=== PATIENT | male | born 1960 | race Two or more races ===

== ENCOUNTER 2016-08-31 07:39 | Inpatient (IN) | payer OTHER ==
[~2016-08-31] VITALS: Ht 170.2 cm; Wt 98.8 kg
[2016-08-31] VITALS (11 sets, daily range): BP systolic 77–136; BP diastolic 57–104
[2016-08-31 08:36] LABS: BASE EXCESS -10.1 mEq/L (-3 to +3); CARBOXY HGB 2.3 % (0-5); METHEMOGLOBIN 0.8 % (0-1.5); PCO2 66 mm Hg (35-45); PO2 270 mm Hg (80-100)
[2016-08-31 08:37] LABS: COMMENTS - BLOOD GASES C+A-N/A; DEVICE 840 VENTILATOR; FI02 100 %; MECHANICAL RATE 16 resp/min; MODE AC; PEEP 5 CM/H20; SITE LR; TIDAL VOLUME 500 ML; TOTAL RESP RATE 24 resp/min
[2016-08-31 08:38] LABS: pH 7.09 (7.35-7.45)
[2016-08-31 08:47] LABS: ANION GAP 15 MEQ/L (2-14); CHLORIDE 103 MEQ/L (99-109); POTASSIUM 5.1 MEQ/L (3.7-5.4); SAMPLE HEMOLYSIS CHECK 0; SAMPLE ICTERIC CHECK 0; SAMPLE LIPEMIA CHECK 0; SODIUM 137 MEQ/L (136-147); TOTAL BILIRUBIN 1.2 MG/DL (0.0-1.0)
[2016-08-31 08:49] LABS: BASOPHIL COUNT 0.1 K/uL (0-0.1); EOSINOPHIL (%) 1.3 % (0-5); EOSINOPHIL COUNT 0.2 K/uL (0-0.3); HEMATOCRIT 38.3 % (38.0-50.0); IMMATURE GRANULOCYTE (%) 1.1 % (0.0-0.7); IMMATURE GRANULOCYTE COUNT 0.2 K/uL; INSTRUMENT ABS NEUTROPHIL CT 10.7 K/uL; LYMPHOCYTE COUNT 3.9 K/uL (1.0-2.8); MCHC 30.3 G/DL (30.0-36.0); MCV 92.5 FL (86-99); MEAN PLAT.VOLUME 10.1 uM^3 (9.0-12.4); MONOCYTE (%) 4.8 % (3-12); MONOCYTE COUNT 0.8 K/uL (0-0.8); NEUTROPHIL (%) 67.6 % (45-76); NEUTROPHIL COUNT 10.7 K/uL (1.8-6.4); PLATELET COUNT 344 K/uL (156-360); RBC DIS.WIDTH-CV 15.4 % (11.8-14.6); RBC DIS.WIDTH-SD 51.6 % (39-53); RED BLOOD COUNT 4.14 M/uL (4.00-5.50); WHITE BLOOD COUNT 15.9 K/uL (4.1-10.2)
[2016-08-31 08:52] LABS: INTER. NORMALIZED RATIO 1.1; PROTHROMBIN TIME 11.6 (9.2-11.2)
[2016-08-31 08:53] LABS: ALKALINE PHOSPHATASE 76 IU/L (3-129); GFR ESTIMATE (CALCULATED) > 59 mL/min/; GLUCOSE 378 mg/dL (70-99); UREA NITROGEN (BUN) 18 mg/dL (9-23)
[2016-08-31 09:03] LABS: TROP-I INTERPRETATION NEGATIVE; TROPONIN-I 0.03 ng/mL (0.0-0.30)
[2016-08-31 09:39] LABS: BASE EXCESS -3.5 mEq/L (-3 to +3); BICARBONATE 22.7 mEq/L (22-26); CARBOXY HGB 2.4 % (0-5)
[2016-08-31 09:41] LABS: COMMENTS - BLOOD GASES C+A-N/A; DEVICE 840 VENTILATOR; FI02 70 %; INSPIRATION TIME 0.8 seconds; MECHANICAL RATE 24 resp/min; MODE AC/VC+; PCO2 45 mm Hg (35-45); PEEP 5 CM/H20; PO2 101 mm Hg (80-100); SITE LR; TIDAL VOLUME 550 ML; TOTAL RESP RATE 24 resp/min; pH 7.31 (7.35-7.45)
[2016-08-31 12:31] LABS: BASE EXCESS 2.5 mEq/L (-3 to +3); BICARBONATE 26.3 mEq/L (22-26); CARBOXY HGB 2.5 % (0-5); METHEMOGLOBIN 1.4 % (0-1.5)
[2016-08-31 12:32] LABS: COMMENTS - BLOOD GASES +C; PCO2 37 mm Hg (35-45); PO2 60 mm Hg (80-100); SITE LR; pH 7.46 (7.35-7.45)
[2016-08-31 12:33] LABS: METH RESISTANT S AUREUS PCR NEGATIVE (NEGATIVE)
[2016-08-31 12:33] LABS: DEVICE PB840; FI02 40 %; INSPIRATION TIME 0.7 seconds; MECHANICAL RATE 24 resp/min; MODE ACVC+; PEEP 5 CM/H20; TIDAL VOLUME 490 ML; TOTAL RESP RATE 24 resp/min
[2016-08-31 12:38] LABS: PROBE CHECK PASS; SPECIMEN PROCESSING CONTROL PASS
[2016-08-31 12:44] LABS: HDL CHOLESTEROL 42 MG/DL (Desirable>=40); LDL CHOLESTEROL 116 mg/dL (Desirable<100); MAGNESIUM 2.6 mg/dl (1.3-2.7); NON-HDL CHOLESTEROL 151 mg/dL (Desirable<160); TOTAL CHOLESTEROL 193 mg/dL (Desirable<200); TRIGLYCERIDES 173 MG/DL (Normal: <150)
[2016-08-31 13:40] LABS: POINT-OF-CARE METER ID UU14174217; POINT-OF-CARE USER ID NUTJLF39
[2016-08-31] MEDS ORDERED: LISINOPRIL10 MG PO (16:42)
[2016-08-31] MEDS ORDERED: METOPROLOL SUCC50 MG PO (16:43)
[2016-08-31] MEDS ORDERED: ASPIR 8181 M1 PO (16:43)
[2016-08-31] MEDS ORDERED: PLAVIX75 MG PO (16:43)
[2016-08-31] MEDS ORDERED: LASIX20 MG PO (16:43)
[2016-08-31] MEDS ORDERED: COREG12.5 M1 PO (16:44)
[2016-08-31 18:06] LABS: POINT-OF-CARE METER ID UU14174217; POINT-OF-CARE USER ID NUTJLF39
[2016-08-31 18:17] LABS: CREATINE KINASE 303 IU/L (1-294); TOTAL CK 303 IU/L (1-294)
[2016-08-31 18:37] LABS: CK-MB 16.5 ng/mL (0.0-4.9)
[2016-08-31 18:45] LABS: TROP-I INTERPRETATION POSITIVE; TROPONIN-I 2.63 ng/mL (0.0-0.30)
[2016-08-31 21:42] LABS: POINT-OF-CARE METER ID UU14162636
[2016-08-31 22:18] LABS: ADD MIUA? YES; BILIRUBIN NEGATIVE; BLOOD LARGE; COLOR YELLOW ((YELLOW)); GLUCOSE (STRIP) NEGATIVE; KETONES NEGATIVE; LEUKOCYTES TRACE; NITRITE NEGATIVE; PROTEIN (STRIP) 30; SPECIFIC GRAVITY 1.016 (1.000-1.030); UROBILINOGEN 0.2 MG/DL (0.2-1.0)
[2016-08-31 22:56] LABS: EPITHELIAL CELLS RARE /HPF; RED BLOOD CELLS 40-50 /HPF (0-5)
[2016-08-31 22:57] LABS: BACTERIA 2+ /HPF; CASTS PRESENT /LPF; CRYSTALS NONE SEEN; HYALINE CASTS RARE /LPF; MUCUS 1+ /LPF; UCUL ADDED? YES
[2016-09-01] VITALS (24 sets, daily range): BP systolic 91–125; BP diastolic 54–87
[2016-09-01 01:45] LABS: CREATINE KINASE 418 IU/L (1-294); TOTAL CK 418 IU/L (1-294)
[2016-09-01 01:48] LABS: TROPONIN-I 2.36 ng/mL (0.0-0.30)
[2016-09-01 01:49] LABS: TROP-I INTERPRETATION POSITIVE
[2016-09-01 01:50] LABS: CK-MB 7.2 ng/mL (0.0-4.9)
[2016-09-01 02:34] LABS: POINT-OF-CARE METER ID UU13113731
[2016-09-01 06:21] LABS: POINT-OF-CARE METER ID UU13113731
[2016-09-01 07:59] LABS: ANION GAP 11 MEQ/L (2-14); CHLORIDE 101 MEQ/L (99-109); GFR ESTIMATE (CALCULATED) > 59 mL/min/; SAMPLE HEMOLYSIS CHECK 1; SAMPLE ICTERIC CHECK 0; SAMPLE LIPEMIA CHECK 0; SODIUM 139 MEQ/L (136-147); UREA NITROGEN (BUN) 22 mg/dL (9-23)
[2016-09-01 08:01] LABS: CREATINE KINASE 330 IU/L (1-294); TOTAL CK 330 IU/L (1-294)
[2016-09-01 08:02] LABS: EOSINOPHIL (%) 0.1 % (0-5); GLUCOSE 130 mg/dL (70-99); HEMATOCRIT 31.3 % (38.0-50.0); IMMATURE GRANULOCYTE (%) 0.5 % (0.0-0.7); IMMATURE GRANULOCYTE COUNT 0.1 K/uL; INSTRUMENT ABS NEUTROPHIL CT 7.9 K/uL; LYMPHOCYTE COUNT 1.7 K/uL (1.0-2.8); MAGNESIUM 2.1 mg/dl (1.3-2.7); MCH 27.8 PG (29.0-34.0); MCHC 31.3 G/DL (30.0-36.0); MCV 88.7 FL (86-99); MONOCYTE (%) 7.7 % (3-12); MONOCYTE COUNT 0.8 K/uL (0-0.8); NEUTROPHIL (%) 75.5 % (45-76); NEUTROPHIL COUNT 7.9 K/uL (1.8-6.4); POTASSIUM 4.3 MEQ/L (3.7-5.4); RBC DIS.WIDTH-CV 15.9 % (11.8-14.6); RBC DIS.WIDTH-SD 50.8 % (39-53); RED BLOOD COUNT 3.53 M/uL (4.00-5.50)
[2016-09-01 08:03] LABS: WHITE BLOOD COUNT 10.5 K/uL (4.1-10.2)
[2016-09-01 08:17] LABS: TROP-I INTERPRETATION POSITIVE; TROPONIN-I 1.63 ng/mL (0.0-0.30)
[2016-09-01 08:20] LABS: CK-MB 4.8 ng/mL (0.0-4.9)
[2016-09-01 08:39] LABS: ABS NEUTROPHIL COUNT 8.9; ATYPICAL LYMPHOCYTE 1.8 %; BAND NEUTROPHILS 2.6 % (0-8.0); EOSINOPHIL ABS CT 0; MEAN PLAT.VOLUME 9.2 uM^3 (9.0-12.4); PLAT.SUFFICIENCY ADEQUATE; PLATELET COUNT 238 K/uL (156-360); SEG.NEUTROPHILS 82.3 % (46.0-76.0); SMUDGE CELLS 7.1
[2016-09-01 10:46] LABS: BASE EXCESS 4.5 mEq/L (-3 to +3); BICARBONATE 28.3 mEq/L (22-26); COMMENTS - BLOOD GASES +C; CONTINUOUS POS AIRWAY PRESSURE 5 cm H2O; DEVICE PB840; FI02 35 %; METHEMOGLOBIN 1.7 % (0-1.5); MODE TUBE COMP; PCO2 38 mm Hg (35-45); PO2 80 mm Hg (80-100); SITE RB; TOTAL RESP RATE 32 resp/min; pH 7.48 (7.35-7.45)
[2016-09-01 13:51] LABS: POINT-OF-CARE METER ID UU13113731
[2016-09-01] MEDS ORDERED: COREG6.25 M1 PO (14:49)
[2016-09-01] MEDS ORDERED: CORDARONE200 MG PO (14:50)
[2016-09-01] MEDS ORDERED: ATORVASTATIN CA80 MG PO (14:50)
[2016-09-01 15:05] LABS: TROP-I INTERPRETATION POSITIVE; TROPONIN-I 1.03 ng/mL (0.0-0.30)
[2016-09-01 15:16] LABS: CREATINE KINASE 352 IU/L (1-294); TOTAL CK 352 IU/L (1-294)
[2016-09-01 17:42] LABS: POINT-OF-CARE METER ID UU13113731
[2016-09-01 22:51] LABS: POINT-OF-CARE METER ID UU13113731
[2016-09-02] VITALS (13 sets, daily range): BP systolic 79–110; BP diastolic 43–74
[2016-09-02 05:37] LABS: EOSINOPHIL (%) 1.1 % (0-5); EOSINOPHIL COUNT 0.1 K/uL (0-0.3); HEMATOCRIT 30.3 % (38.0-50.0); IMMATURE GRANULOCYTE (%) 0.4 % (0.0-0.7); INSTRUMENT ABS NEUTROPHIL CT 5.6 K/uL; MCH 28.4 PG (29.0-34.0); MCV 88.6 FL (86-99); MEAN PLAT.VOLUME 9.5 uM^3 (9.0-12.4); MONOCYTE (%) 8.2 % (3-12); MONOCYTE COUNT 0.7 K/uL (0-0.8); NEUTROPHIL (%) 66.3 % (45-76); NEUTROPHIL COUNT 5.6 K/uL (1.8-6.4); PLATELET COUNT 230 K/uL (156-360); RBC DIS.WIDTH-CV 15.9 % (11.8-14.6); RBC DIS.WIDTH-SD 51.2 % (39-53); RED BLOOD COUNT 3.42 M/uL (4.00-5.50); WHITE BLOOD COUNT 8.4 K/uL (4.1-10.2)
[2016-09-02 06:05] LABS: ANION GAP 10 MEQ/L (2-14); CHLORIDE 99 MEQ/L (99-109); GFR ESTIMATE (CALCULATED) > 59 mL/min/; GLUCOSE 106 mg/dL (70-99); MAGNESIUM 2.3 mg/dl (1.3-2.7); POTASSIUM 4.1 MEQ/L (3.7-5.4); SAMPLE HEMOLYSIS CHECK 0; SAMPLE ICTERIC CHECK 0; SAMPLE LIPEMIA CHECK 0; SODIUM 139 MEQ/L (136-147); UREA NITROGEN (BUN) 24 mg/dL (9-23)
[2016-09-02 13:08] LABS: POINT-OF-CARE METER ID UU13113731
[2016-09-02 17:14] LABS: POINT-OF-CARE METER ID UU13113731
[2016-09-02 22:27] LABS: POINT-OF-CARE METER ID UU13113731
[2016-09-03] VITALS (8 sets, daily range): BP systolic 86–107; BP diastolic 51–66
[2016-09-03 06:07] LABS: EOSINOPHIL (%) 1.2 % (0-5); EOSINOPHIL COUNT 0.1 K/uL (0-0.3); HEMATOCRIT 33.1 % (38.0-50.0); IMMATURE GRANULOCYTE (%) 0.5 % (0.0-0.7); IMMATURE GRANULOCYTE COUNT 0.1 K/uL; INSTRUMENT ABS NEUTROPHIL CT 7.2 K/uL; LYMPHOCYTE COUNT 1.5 K/uL (1.0-2.8); MCH 27.6 PG (29.0-34.0); MCHC 30.8 G/DL (30.0-36.0); MCV 89.5 FL (86-99); MEAN PLAT.VOLUME 9.4 uM^3 (9.0-12.4); MONOCYTE (%) 8.4 % (3-12); MONOCYTE COUNT 0.8 K/uL (0-0.8); NEUTROPHIL (%) 74.2 % (45-76); NEUTROPHIL COUNT 7.2 K/uL (1.8-6.4); PLATELET COUNT 235 K/uL (156-360); RBC DIS.WIDTH-CV 15.6 % (11.8-14.6); RBC DIS.WIDTH-SD 50.7 % (39-53); WHITE BLOOD COUNT 9.7 K/uL (4.1-10.2)
[2016-09-03 06:30] LABS: ANION GAP 12 MEQ/L (2-14); CHLORIDE 99 MEQ/L (99-109); GFR ESTIMATE (CALCULATED) > 59 mL/min/; GLUCOSE 102 mg/dL (70-99); MAGNESIUM 2.3 mg/dl (1.3-2.7); POTASSIUM 4.2 MEQ/L (3.7-5.4); SAMPLE HEMOLYSIS CHECK 0; SAMPLE ICTERIC CHECK 0; SAMPLE LIPEMIA CHECK 0; SODIUM 138 MEQ/L (136-147); UREA NITROGEN (BUN) 27 mg/dL (9-23)
[2016-09-03 12:41] LABS: POINT-OF-CARE METER ID UU13113731
[2016-09-04 03:36] VITALS: BP 94/53
[2016-09-04 06:41] LABS: EOSINOPHIL (%) 0.9 % (0-5); EOSINOPHIL COUNT 0.1 K/uL (0-0.3); HEMATOCRIT 33.2 % (38.0-50.0); IMMATURE GRANULOCYTE (%) 0.4 % (0.0-0.7); INSTRUMENT ABS NEUTROPHIL CT 7.2 K/uL; LYMPHOCYTE COUNT 1.1 K/uL (1.0-2.8); MCH 27.6 PG (29.0-34.0); MCHC 31.6 G/DL (30.0-36.0); MCV 87.4 FL (86-99); MEAN PLAT.VOLUME 9.8 uM^3 (9.0-12.4); MONOCYTE (%) 8.2 % (3-12); MONOCYTE COUNT 0.8 K/uL (0-0.8); NEUTROPHIL (%) 78.2 % (45-76); NEUTROPHIL COUNT 7.2 K/uL (1.8-6.4); PLATELET COUNT 256 K/uL (156-360); RBC DIS.WIDTH-CV 15.3 % (11.8-14.6); RBC DIS.WIDTH-SD 48.3 % (39-53); WHITE BLOOD COUNT 9.3 K/uL (4.1-10.2)
[2016-09-04 07:03] LABS: ANION GAP 11 MEQ/L (2-14); CHLORIDE 99 MEQ/L (99-109); GFR ESTIMATE (CALCULATED) > 59 mL/min/; GLUCOSE 102 mg/dL (70-99); MAGNESIUM 2.3 mg/dl (1.3-2.7); POTASSIUM 4.3 MEQ/L (3.7-5.4); SAMPLE HEMOLYSIS CHECK 0; SAMPLE ICTERIC CHECK 0; SAMPLE LIPEMIA CHECK 0; SODIUM 136 MEQ/L (136-147); UREA NITROGEN (BUN) 29 mg/dL (9-23)
[2016-09-04 07:30] VITALS: BP 97/57
[2016-09-04 11:12] VITALS: BP 92/57
[2016-09-04] MEDS ORDERED: ATORVASTATIN CA80 MG PO (13:34)
[2016-09-04] MEDS ORDERED: COREG6.25 M1 PO (13:34)
[2016-09-04] MEDS ORDERED: LISINOPRIL10 MG PO (13:34)
[2016-09-04] MEDS ORDERED: CORDARONE200 MG PO (13:34)
[2016-09-04] MEDS ORDERED: PLAVIX75 MG PO (13:34)
[2016-09-04] MEDS ORDERED: FUROSEMIDE40 MG PO (13:34)
[2016-09-04] MEDS ORDERED: ASPIR 8181 M1 PO (13:34)
[2016-09-04 17:17] VITALS: BP 119/70
[2016-09-04 19:27] VITALS: BP 105/58
[2016-09-04 23:29] VITALS: BP 111/53
[2016-09-05 03:23] VITALS: BP 108/60
[2016-09-05 07:10] LABS: EOSINOPHIL (%) 0.4 % (0-5); HEMATOCRIT 32.4 % (38.0-50.0); IMMATURE GRANULOCYTE (%) 0.4 % (0.0-0.7); INSTRUMENT ABS NEUTROPHIL CT 7.9 K/uL; LYMPHOCYTE COUNT 1.3 K/uL (1.0-2.8); MCH 27.7 PG (29.0-34.0); MCHC 32.1 G/DL (30.0-36.0); MCV 86.2 FL (86-99); MEAN PLAT.VOLUME 9.7 uM^3 (9.0-12.4); MONOCYTE (%) 9.5 % (3-12); NEUTROPHIL (%) 76.9 % (45-76); NEUTROPHIL COUNT 7.9 K/uL (1.8-6.4); PLATELET COUNT 238 K/uL (156-360); RBC DIS.WIDTH-CV 15.2 % (11.8-14.6); RED BLOOD COUNT 3.76 M/uL (4.00-5.50); WHITE BLOOD COUNT 10.3 K/uL (4.1-10.2)
[2016-09-05 07:43] LABS: ANION GAP 12 MEQ/L (2-14); CHLORIDE 101 MEQ/L (99-109); MAGNESIUM 2.3 mg/dl (1.3-2.7); POTASSIUM 4.6 MEQ/L (3.7-5.4); SAMPLE HEMOLYSIS CHECK 0; SAMPLE ICTERIC CHECK 0; SAMPLE LIPEMIA CHECK 0; SODIUM 135 MEQ/L (136-147)
[2016-09-05 07:49] LABS: GFR ESTIMATE (CALCULATED) > 59 mL/min/; GLUCOSE 103 mg/dL (70-99); UREA NITROGEN (BUN) 26 mg/dL (9-23)
[2016-09-05 08:00] VITALS: BP 105/69
[2016-09-05 11:57] VITALS: BP 110/68
[2016-09-05 16:04] VITALS: BP 92/55
[2016-09-05 19:47] VITALS: BP 103/65
[2016-09-05 23:46] VITALS: BP 97/65
[2016-09-06 03:51] VITALS: BP 100/56
[2016-09-06 07:45] LABS: BASOPHIL COUNT 0.1 K/uL (0-0.1); EOSINOPHIL COUNT 0.1 K/uL (0-0.3); HEMATOCRIT 29.1 % (38.0-50.0); IMMATURE GRANULOCYTE (%) 0.3 % (0.0-0.7); INSTRUMENT ABS NEUTROPHIL CT 5.8 K/uL; LYMPHOCYTE COUNT 1.9 K/uL (1.0-2.8); MCV 87.7 FL (86-99); MEAN PLAT.VOLUME 9.7 uM^3 (9.0-12.4); MONOCYTE (%) 10.7 % (3-12); MONOCYTE COUNT 0.9 K/uL (0-0.8); NEUTROPHIL (%) 66.1 % (45-76); NEUTROPHIL COUNT 5.8 K/uL (1.8-6.4); PLATELET COUNT 280 K/uL (156-360); RBC DIS.WIDTH-CV 15.3 % (11.8-14.6); RBC DIS.WIDTH-SD 49.1 % (39-53); RED BLOOD COUNT 3.32 M/uL (4.00-5.50); WHITE BLOOD COUNT 8.7 K/uL (4.1-10.2)
[2016-09-06 08:00] VITALS: BP 96/51
[2016-09-06 08:06] LABS: ANION GAP 11 MEQ/L (2-14); CHLORIDE 101 MEQ/L (99-109); GFR ESTIMATE (CALCULATED) > 59 mL/min/; GLUCOSE 95 mg/dL (70-99); MAGNESIUM 2.3 mg/dl (1.3-2.7); POTASSIUM 4.3 MEQ/L (3.7-5.4); SAMPLE HEMOLYSIS CHECK 0; SAMPLE ICTERIC CHECK 0; SAMPLE LIPEMIA CHECK 0; SODIUM 136 MEQ/L (136-147); UREA NITROGEN (BUN) 24 mg/dL (9-23)
[2016-09-06 12:00] VITALS: BP 98/54
[2016-09-06] MEDS ORDERED: ASPIR-LOW81 MG PO (12:25)
[2016-09-06] MEDS ORDERED: LISINOPRIL2.5 MG PO (12:25)
[2016-09-06] MEDS ORDERED: ATORVASTATIN CA80 MG PO (12:25)
[2016-09-06] MEDS ORDERED: CORDARONE200 MG PO (12:25)
[2016-09-06] MEDS ORDERED: CLOPIDOGREL75 MG PO (12:25)
[2016-09-06] MEDS ORDERED: CARVEDILOL3.125 MG PO (12:25)
[2016-09-06] MEDS ORDERED: LASIX20 MG PO (12:25)
[2016-09-06 14:00] VITALS: BP 95/65
== END 2016-09-06 16:15 | disposition home or self-care (01) | DRG 302 ==
LOC: EDBD 07:39 → EME 07:39 → 4WEST 09:20 → EDOF 09:20 → 2EAST 09:20 → 4WEST 10:54 → 2EAST 09-03 15:23
PROVIDERS: Emergency Medicine; Hospitalist; Internal Medicine; Internal Medicine Cardiovascular Disease; Internal Medicine Nephrology
DX: I25.10 Atherosclerotic heart disease of native coronary artery without angina pectoris (principal); J96.01 Acute respiratory failure with hypoxia; J96.02 Acute respiratory failure with hypercapnia; I50.43 Acute on chronic combined systolic (congestive) and diastolic (congestive) heart failure; J81.1 Chronic pulmonary edema; I47.2 Ventricular tachycardia; E87.2 Acidosis; E87.5 Hyperkalemia; E78.5 Hyperlipidemia, unspecified; R73.9 Hyperglycemia, unspecified; R94.31 Abnormal electrocardiogram [ECG] [EKG]; I25.5 Ischemic cardiomyopathy; I25.2 Old myocardial infarction; Z95.810 Presence of automatic (implantable) cardiac defibrillator; Z95.1 Presence of aortocoronary bypass graft
CPT/HCPCS: 36600; 71010; 80048; 80053; 80061; 81003; 82550; 82550 91; 82553; 82803; 82948; 83605; 83735; 83880; 84100; 84484; 85025; 85027; 85610; 85730; 87040; 87070; 87077; 87086; 87186; 87205; 87641; 93005; 93306; 94002; 94640; 94640 76; 94799; 99202; 99281; 99285; J0282; J0330; J1644; J1815; J1940; J2704; P9045; S0028